=== PATIENT | male | born 1985 | race Caucasian/White ===

== ENCOUNTER 2017-10-03 20:29 | Emergency (ER) | payer SELFPAY ==
[~2017-10-03 20:29] MED LIST: Sodium Chloride Irrig Solution 250 ML BOT ONE
[2017-10-03] MEDS ORDERED: Adacel (T-DAP) 0.5 ML VIAL ONE (20:49)
[2017-10-03] MEDS ORDERED: Lidocaine 1% w/Epinephrine 1:100K 20 ML VIAL ONE (20:49)
--- NOTE | 2017-10-03 21:25 | RAD ---
RIGHT TIBIA AND FIBULA TWO VIEWS 10/03/17 HISTORY: Puncture. Possible foreign body. COMPARISON: None. FINDINGS: No fracture. No cortical irregularity. No periosteal reaction. No radiopaque foreign body. IMPRESSION: No radiopaque foreign body. POS: [facility]
[2017-10-03] MEDS ORDERED: Bacitracin Zinc 1 Packet ONE (21:42)
== END 2017-10-03 21:53 | disposition home or self-care (01) ==
LOC: MADERS 20:29
DX: S81.811A Laceration without foreign body, right lower leg, initial encounter (principal); B20 Human immunodeficiency virus [HIV] disease; F17.210 Nicotine dependence, cigarettes, uncomplicated; W45.8XXA Other foreign body or object entering through skin, initial encounter
CPT/HCPCS: 12001; 90471; 90715; J2001